=== PATIENT | female | born 1955 | race African-American/Black ===

== ENCOUNTER 2017-02-21 12:04 | Inpatient (IN) | payer BC ==
[2017-02-15 11:44] LABS: BASOPHILS 0.2 %; BASOPHILS ABSOLUTE 0.01 10/3/uL (0.0-0.16); EOSINOPHILS 2.5 %; EOSINOPHILS ABSOLUTE 0.12 10/3/uL (0.0-0.53); HEMATOCRIT 37.8 % (36.0-48.0); IMMATURE GRANULOCYTES 0.2 %; IMMATURE GRANULOCYTES ABSOLUTE 0.01 10/3/uL (0.0-0.11); LYMPHOCYTES 35.9 %; LYMPHOCYTES ABSOLUTE 1.74 10/3/uL (0.67-4.30); MEAN CORPUS HGB CONC 31.7 g/dL (32.0-36.0); MEAN CORPUSCULAR HEMOGLOB 28.4 pg (26.0-34.0); MEAN CORPUSCULAR VOLUME 89.4 fL (80-100); MEAN PLATELET VOLUME 10.8 fL (9.2-13.0); MONOCYTES 5.6 %; MONOCYTES ABSOLUTE 0.27 10/3/uL (0.21-1.20); NEUTROPHILS 55.6 %; PLATELET COUNT 217 10/3/uL (150-400); RBC DISTRIBUTION WIDTH 13.4 % (12.0-16.0); RED CELL COUNT 4.23 10/6/uL (4.0-5.6); WHITE BLOOD CELLS 4.9 10/3/uL (4.5-10.5)
[2017-02-15 11:45] LABS: MANUAL DIFF NO %
[2017-02-15 11:48] LABS: INTERNATIONAL NORMAL RATI 0.9 UNITS (-); PARTIAL THROMBO TIME 29.8 SEC (22.5-37.2); PROTIME (NOT ORD) 12.5 SEC (12.0-14.5)
[2017-02-15 11:57] LABS: ALBUMIN 3.4 G/DL (3.5-5.0); ALKALINE PHOSPHATASE 89 U/L (45-117); BUN (BLOOD UREA NITROGEN) 11 MG/DL (6-23); CALCIUM, SERUM 9.1 MG/DL (8.5-10.4); CHLORIDE, SERUM 106 MMOL/L (96-112); CO2 (CARBON DIOXIDE) 28 MMOL/L (24-34); CREATININE 0.72 MG/DL (0.55-1.02); GFR AFRICAN AMERICAN 104 ML/MIN (>=60); GFR NON AFRICAN AMERICAN 90 ML/MIN (>=60); GLUCOSE, SERUM 83 MG/DL (60-99); SGOT(AST) 10 U/L (5-40); SGPT(ALT) 11 U/L (5-65); SODIUM, SERUM 141 MMOL/L (135-148); TOTAL PROTEIN 7.2 G/DL (6.0-8.5)
[2017-02-15 11:58] LABS: A/G RATIO 0.9 (0.7-1.9); GLOBULIN 3.8 G/DL (2.5-4.1); TOTAL BILIRUBIN 0.4 MG/DL (0-1.2)
[2017-02-15 12:50] LABS: ASCORBIC ACID (UR NOT ORDER) NEG (NEG); BILIRUBIN, URINE NEGATIVE (NEG); KETONE, URINE NEGATIVE (NEG); LEUKOCYTE ESTERASE(NOT OR NEG (NEG); WBC (NOT ORDERED) (RFLEX) 1 (0-5)
--- NOTE | ~2017-02-21 | HP ---
History And Physical [place] [id number] [facility] [place]. [address] NAME: CORNELIA GONZALEZ : 53 STATUS : ADM IN PAT#: [id number] AGE: 61 ADM/REG DATE : 02/21/17 MR#: [id number] REPORT SERV DATE: 02/21/17 DICTATED BY: MICHAEL GREENWOOD III DATE: 02/21/17 REPORT STATUS : Draft TRANSCRIBED BY: MODL DATE: 02/21/17 DATE OF ADMISSION: 02/21/2017 CHIEF COMPLAINT: Left knee pain. HISTORY: The patient is a 61-year-old black female, who complains of pain in the left knee and has so for several years. It has gotten progressively worse in the last year, complained of rest pain, night pain, all unrelieved with nonsteroidal antiinflammatory medicines. X-rays reveal severe advanced osteoarthritis of her left knee, and she is admitted for left total knee arthroplasty. Risks, benefits, and expected outcomes have been explained, but not limited to blood clots, infection, neurovascular injuries, patella maltracking problems, and component failures. The patient has previously undergone a right total knee arthroplasty on 09/10/2015 and did well. She fell six days postop and underwent a wound dehiscence of her total knee with exposed components. She was brought to surgery on an emergent basis, undergoing irrigation and debridement of her right knee. This was performed on 09/17/2015. She is now admitted for left total knee arthroplasty. Risks, benefits, and expected outcomes have been explained, but not limited to blood clots, infection, neurovascular injuries, patella maltracking problems, and component failures. PAST MEDICAL HISTORY: Significant for high blood pressure, non-insulin dependent diabetes, shortness of breath, chest pain, and asthma. PREVIOUS SURGERIES: Include right knee replacement, tonsillectomy and adenoidectomy, cholecystectomy, and bilateral carpal tunnel release. MEDICATIONS: Please see the MAR. ALLERGIES: ASPIRIN. SOCIAL HISTORY: Nonsmoker. Nondrinker. PHYSICAL EXAMINATION: GENERAL: She is alert and oriented x3. VITAL SIGNS: Stable. HEENT: Normocephalic and atraumatic. Pupils are equal, round, and reactive to light and accommodation. Extraocular muscles are intact. NECK: Supple. CHEST: Clear. HEART: Regular rate and rhythm without murmur. ABDOMEN: Benign. Soft, nontender. Positive bowel sounds. ORTHOPEDIC: Shows marked tenderness to her left knee. She has about 20 degrees of recurvatum with limited flexion to about 120. Varus alignment is about 5 to 8 degrees, crepitation through range of motion. Very tender and painful to the medial femoral condyle and medial joint line. Tenderness to the patellofemoral joint. Mild effusion. IMAGING: X-ray of the left knee reveals advanced osteoarthritis of left knee, [id number] History And Physical [address] [address] NAME: CORNELIA GONZALEZ : 53 STATUS : ADM IN [facility]#: [id number] AGE: 61 ADM/REG DATE : 02/21/17 MR#: [id number] REPORT SERV DATE: 02/21/17 DICTATED BY: MICHAEL GREENWOOD III DATE: 02/21/17 REPORT STATUS : Draft TRANSCRIBED BY: ZO DATE: 02/21/17 deformity in the medial compartment. PLANS: Admission for left total knee arthroplasty. TB/MODL Michael Greenwood III, M.D. / [id number] CC: Michael Greenwood III, M.D.
--- NOTE | ~2017-02-21 | OP ---
Record Of Operation [facility] [address] [place]. [address] NAME: CORNELIA GONZALEZ : 53 STATUS : ADM IN PAT#: [id number] AGE: 61 ADM/REG DATE : 02/21/17 MR#: [id number] REPORT SERV DATE: 02/21/17 DICTATED BY: MICHAEL GREENWOOD III DATE: 02/21/17 REPORT STATUS : Draft TRANSCRIBED BY: MODL DATE: 02/21/17 DATE OF PROCEDURE: 02/21/2017 PREOPERATIVE DIAGNOSIS: Advanced osteoarthritis, left knee. POSTOPERATIVE DIAGNOSIS: Advanced osteoarthritis, left knee. SURGICAL PROCEDURE PERFORMED: Left total knee arthroplasty using the DePuy Attune system with a size 4 femoral component, size 4 tibial tray, a +7 polyethylene insert, and a 35 mm patella, posterior stabilized design. SURGEON: Michael Greenwood M.D. FISH GRADER: Edward. ANESTHESIA: General. ANTIBIOTICS: Ancef 2 g. COMPLICATIONS: None. TOURNIQUET TIME: 39 minutes. CRYSTALLOID: 1000 mL. ESTIMATED BLOOD LOSS: 75 mL. DRAINS: None. Tranexamic acid 2 g. PROCEDURE IN DETAIL: The patient was brought to the operating room, placed on the table in supine position, and general anesthesia was induced. 2 g was administered intravenously in the operating room. Pneumatic tourniquet was applied, the left upper thigh and left lower extremity was prepped and draped in the usual sterile fashion. It was exsanguinated with a 6-inch Esmarch and the tourniquet was inflated to 350 mmHg. Assuring good anesthesia, a standard midline incision was made directly over the left knee followed by a medial arthrotomy. The patella was everted. The knee was flexed to 90 degrees. Medial and lateral menisci were debrided along with the anterior cruciate ligament. A 5 mm step drill was used to enter the femoral canal and the intramedullary guide was placed on 5 degrees valgus for the left knee. Distal femur was trialed to a size 4 femoral component, marked along the epicondylar axis. Multi-cutting guide was placed in these perez, pinned to the distal femur, and the anterior and posterior cuts made, along with the anterior angled chamfer cuts. The intercondylar cutting guide was next centered and pinned to the distal femur. A reciprocating saw was used to make this cut for the posterior stabilized system. Trial reduction was carried out noting good cuts in all planes. Record Of Operation [facility] [address] [place]. [address] NAME: CORNELIA GONZALEZ : 53 STATUS : ADM IN PAT#: [id number] AGE: 61 ADM/REG DATE : 02/21/17 MR#: [id number] REPORT SERV DATE: 02/21/17 DICTATED BY: MICHAEL GREENWOOD III DATE: 02/21/17 REPORT STATUS : Draft TRANSCRIBED BY: ZO DATE: 02/21/17 Attention was turned toward the tibial side. The external tibial cutting guide was aligned with the second metatarsal ray and pinned to the proximal tibia. Oscillating saw was used to make this cut with a neutral degree cutting block. Trial reduction was carried out with a size 4 tibial baseplate and a +7 polyethylene insert. Full extension was achieved. Nice flexion to 125 degrees, flexion and extension gaps were symmetrical. The undersurface of the patella was then resurfaced by transecting 9 to 10 mm of bone. A 35 mm patellar template was used to place three anchor holes in the undersurface of the patella. The tibia was then prepared with a drill and a punch. Two packs of methylmethacrylate were vacuum mixed, pressurized in the good dry cancellous bone. The real components were placed. Excess cement was removed. Tourniquet was released after 39 minutes. Bleeding was controlled with Bovie electrocautery. Thorough irrigation was carried out throughout the procedure with pulse lavage system. No drains were used. The medial arthrotomy was closed with #2 Ethibond suture in interrupted fashion [id number], subcutaneous tissues was closed with 2-0 Vicryl, and the skin was closed using alex. Sterile Aquacel dressing was applied. The patient tolerated the procedure well and brought to the recovery room in satisfactory condition. SALLY/ZO Michael Greenwood III, M.D. / [id number] CC: Michael Greenwood III, M.D.
[~2017-02-21 12:04] MED LIST: AMB10 PO; CYMBALTA60 PO; ELIQUIS 2.5 MG2.5 MG PO; FORTAMET1000 MG PO; GLUCOPHXR PO; NABUMETONE750 MG PO; NORCO1 TAB PO; OSTEO BI-FLEX1 EACH PO; PERCOCET1 TA4 PO; PRAV10 PO; PREMPRO1 TAB PO; PRILOSEC40 MG PO; PRIN5 PO; SUCR PO; VAGIFEM10 MCG V; VITAMIN B-122500 MCG SL
[2017-02-22 04:26] LABS: HEMATOCRIT 33.3 % (36.0-48.0); HEMOGLOBIN 10.7 g/dL (12.0-16.0)
[2017-02-23 06:07] LABS: HEMATOCRIT 28.5 % (36.0-48.0); HEMOGLOBIN 9.5 g/dL (12.0-16.0)
[2017-02-23] MEDS ORDERED: PERCOCET 10/3251 TAB PO (10:59)
[2017-02-23] MEDS ORDERED: ELIQUIS 2.5 MG2.5 MG PO (10:59)
[2017-06-07] MEDS ORDERED: COZ25 PO (08:38)
[2017-06-07] MEDS ORDERED: NORCO1 TAB PO (08:39)
== END 2017-02-23 17:47 | disposition home or self-care (01) | DRG 470 ==
LOC: SDC/OF 12:04 → PACU 16:20 → 3JRC 17:47
PROVIDERS: Orthopaedic Surgery
PROC: 3E0T3CZ (ICD-10-PCS; 2017-02-21)
PROC: 0SRD0J9 Replacement of Left Knee Joint with Synthetic Substitute, Cemented, Open Approach (ICD-10-PCS; principal; 2017-02-21 13:45)
DX: M17.12 Unilateral primary osteoarthritis, left knee (principal); I10 Essential (primary) hypertension; E11.9 Type 2 diabetes mellitus without complications; E66.9 Obesity, unspecified; Z68.28 Body mass index [BMI] 28.0-28.9, adult; Z96.651 Presence of right artificial knee joint; Z90.49 Acquired absence of other specified parts of digestive tract; Z98.890 Other specified postprocedural states; Z88.6 Allergy status to analgesic agent
CPT/HCPCS: 71020; 80053; 81001; 82962; 85014; 85018; 85025; 85610; 85730; 87641; 88305; 88311; 93005; 97116-GP; 97150-GP; 97161-GP; 97165-GO; A9270-GY; C1776; J0360; J0690; J1170; J1885; J2250; J2270; J2274; J2405; J2710; J2795; J3010